=== PATIENT | female | born 1970 | race Hispanic/Latino ===

== ENCOUNTER 2019-01-08 08:30 | Day surgery (SDC) | payer SELFPAY ==
[~2019-01-08 08:30] MED LIST: DICLOXACILL250 MG PO; MELOXICAM15 MG PO; PARAGARD IU; PRILOSEC40 MG PO; RYBIX ODT50 MG PO; SYNTHROID125 MCG PO; TYLENOL # 31 TA1 PO; [UNRECOGNIZED DRUG - OTHER] PO
[2019-01-08 12:03] VITALS: BP 133/82
== END 2019-01-08 12:20 | disposition home or self-care (01) | DRG 395 ==
LOC: ENDO 08:30 → ORM 12:00 → ENDO 12:20
PROVIDERS: ATTEND Surgery
PROC: 0DBN8ZX Excision of Sigmoid Colon, Via Natural or Artificial Opening Endoscopic, Diagnostic (ICD-10-PCS; principal; 2019-01-08)
DX: D12.5 Benign neoplasm of sigmoid colon (principal); K64.8 Other hemorrhoids